=== PATIENT | male | born 1955 | race Caucasian/White ===

== ENCOUNTER 2017-10-02 16:42 | Emergency (ER) | payer OTHER ==
[2017-10-02 16:54] VITALS: PULSE 83
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
[2017-10-02] MEDS ORDERED: LORazepam 2 MG/ML INJ IV STA (17:46)
[2017-10-02 18:12] LABS: Basophils % (A) 1 %; Eosinophils # (A) 0.2 k/uL (0-0.7); Eosinophils % (A) 4 %; HCT 39.8 % (39.0-53.0); HGB 12.8 gm/dL (13.0-17.5); Lymphocytes # (A) 1.9 k/uL (1.0-4.8); Lymphocytes % (A) 31 %; MCH 31.7 pg (25.0-35.0); MCHC 32.2 g/dL (31.0-37.0); MCV 98.6 fL (80.0-100.0); Mean Platelet Volume 7.9; Monocytes # (A) 0.7 k/uL (0-1.0); Monocytes % (A) 11 %; Neutrophils # (A) 3.2 k/uL (1.3-7.7); Neutrophils % (A) 52 %; Platelet Count 241 k/uL (150-450); RBC 4.04 m/uL (4.30-5.90); RDW 13.2 % (11.5-15.5); WBC 6.2 k/uL (3.8-10.6)
[2017-10-02] MEDS ORDERED: HALOPERIDOL LACTATE 5 MG/ML 1 ML VIAL IVP STA (18:16)
[2017-10-02] MEDS ORDERED: diphenhydrAMINE 50 MG/ML 1 ML VIAL IVP STA (18:16)
[2017-10-02 18:22] LABS: ALT 19 U/L (21-72); AST 29 U/L (17-59); Albumin 3.7 g/dL (3.5-5.0); Alkaline Phosphatase 72 U/L (38-126); Anion Gap 12 mmol/L; Blood Urea Nitrogen 28 mg/dL (9-20); Calcium 9.5 mg/dL (8.4-10.2); Carbon Dioxide 26 mmol/L (22-30); Chloride 107 mmol/L (98-107); Glucose 85 mg/dL (74-99); Sodium 145 mmol/L (137-145); Total Bilirubin 0.3 mg/dL (0.2-1.3); Total Protein 7.1 g/dL (6.3-8.2)
[2017-10-02 18:33] LABS: Appearance,Urine Clear (Clear); Bilirubin,Urine Negative (Negative); Blood,Urine Negative (Negative); Color,Urine Yellow; Glucose,Urine (UA) Negative (Negative); Ketones,Urine Negative (Negative); Leukocyte Esterase,Urine Negative (Negative); Nitrite,Urine Negative (Negative); Protein,Urine Trace (Negative); Specific Gravity,Urine 1.025 (1.001-1.035); Urobilinogen,Urine <2.0 mg/dL (<2.0)
[2017-10-02 18:35] LABS: Potassium 4.9 mmol/L (3.5-5.1)
[2017-10-02 18:46] LABS: Amphetamine Screen,Urine Not Detected (NotDetected); Barbiturate Screen,Urine Not Detected (NotDetected); Benzodiazepines Screen,Urine Detected (NotDetected); Cocaine Screen,Urine Not Detected (NotDetected); Methadone Screen, Urine Not Detected (NotDetected); Opiate Screen,Urine Not Detected (NotDetected); Oxycodone Screen, Urine Not Detected (NotDetected); Phencyclidine Screen,Urine Not Detected (NotDetected); Tricyclic Antidepressant,Urine Detected (NotDetected); Urn Cannabinoid Scrn Not Detected (NotDetected)
--- NOTE | 2017-10-02 19:47 | CT ---
EXAMINATION: CT brain wo con DATE AND TIME: 10/02/2017 7:36 PM ORDERING PROVIDER: Alfred Walters MD CLINICAL INDICATION: Pain altered mental status. Multiple scan attempts due to patient inability to f ollow commands and hold still. TECHNIQUE: Standard departmental protocol. DLP: 2640 mGy-cm. COMPARISON: None. DESCRIPTION: The calvarium is intact. There is no intracranial hemorrhage. There is no mass or mass e ffect. There is no definite new attenuation defect. Remainder of the intra-axial and extra-axial comp artment examination is unremarkable. The paranasal sinuses, middle ear cavities, and mastoid sinus ai r cells are clear. The orbits are intact. IMPRESSION: 1. NO ACUTE PROCESS. 2. However, incidental finding of blocked right external auditory canal, which may be due to cerumen.
[2017-10-02 20:49] VITALS: BP 147/75; RESP 20; TEMP 97.1
== END 2017-10-02 20:48 | disposition home or self-care (01) ==
LOC: EC 16:42
DX: R45.1 Restlessness and agitation (principal); R41.82 Altered mental status, unspecified; R06.03 Acute respiratory distress; H54.8 Legal blindness, as defined in USA; Z79.899 Other long term (current) drug therapy; Z88.0 Allergy status to penicillin; Z88.1 Allergy status to other antibiotic agents; Z88.8 Allergy status to other drugs, medicaments and biological substances
CPT/HCPCS: 36415; 80053; 85025; 81003; 80306; 70450; 99285; 96374; 96375 ×2; J2060; J1200; J1630

== ENCOUNTER 2017-10-03 21:57 | Emergency (ER) | payer OTHER ==
[2017-10-03] MEDS ORDERED: diphenhydrAMINE 50 MG/ML 1 ML VIAL IM STA (22:25)
[2017-10-03] MEDS ORDERED: LORazepam 2 MG/ML INJ IM STA (22:25)
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
[2017-10-03] MEDS ORDERED: ZIPRASIDONE 20 MG VIAL IM STA (23:31)
[2017-10-04 00:28] VITALS: BP 104/75; PULSE 78; RESP 18; TEMP 97.4
[2017-10-04 00:43] LABS: Basophils % (A) 0 %; Eosinophils # (A) 0.2 k/uL (0-0.7); Eosinophils % (A) 3 %; HCT 40.3 % (39.0-53.0); HGB 12.8 gm/dL (13.0-17.5); Lymphocytes # (A) 2.5 k/uL (1.0-4.8); Lymphocytes % (A) 35 %; MCH 31.5 pg (25.0-35.0); MCHC 31.8 g/dL (31.0-37.0); Mean Platelet Volume 7.4; Monocytes # (A) 0.7 k/uL (0-1.0); Monocytes % (A) 9 %; Neutrophils # (A) 3.7 k/uL (1.3-7.7); Neutrophils % (A) 51 %; Platelet Count 224 k/uL (150-450); RBC 4.07 m/uL (4.30-5.90); RDW 13.1 % (11.5-15.5); WBC 7.2 k/uL (3.8-10.6)
[2017-10-04 00:51] LABS: ALT 19 U/L (21-72); AST 19 U/L (17-59); Albumin 3.7 g/dL (3.5-5.0); Alkaline Phosphatase 76 U/L (38-126); Anion Gap 9 mmol/L; Blood Urea Nitrogen 27 mg/dL (9-20); Calcium 9.9 mg/dL (8.4-10.2); Carbon Dioxide 26 mmol/L (22-30); Chloride 109 mmol/L (98-107); Glucose 90 mg/dL (74-99); Potassium 4.2 mmol/L (3.5-5.1); Sodium 144 mmol/L (137-145); Total Bilirubin 0.3 mg/dL (0.2-1.3)
[2017-10-04] MEDS ORDERED: OXcarbazepine 150 MG TAB PO STA (08:43)
[2017-10-04] MEDS ORDERED: VALPROIC ACID ORAL SOLN 250 MG/5 ML CUP PO STA (09:44)
--- NOTE | 2017-10-04 11:12 | CONS ---
CONSULTATION DATE OF SERVICE: October 04, 2017. The patient was seen in the emergency room. IDENTIFYING DATA AND HISTORY OF PRESENT ILLNESS: As the patient is nonverbal, most of the information was gathered from the medical record and the nursing staff and the caregiver at the skilled nursing. The patient is a 61 -year-old male with severe autism who presented from a skilled nursing with increased agitation, biting and hitting himself. The patient behavior has been worsening over the last 2 months since he did fall down and he did have a right-sided subdural hematoma. As the patient is nonverbal, I talked with the caregiver who was reluctant to take the patient back to the skilled nursing. However, I told her that they can not bring the patient and drop him especially I did discuss with them that different treatment plan and approach. CURRENT PSYCHOTROPIC MEDICATION: Remeron 30 mg at bedtime. Risperdal 4 mg twice a day. Depakote 500 mg twice a day and BuSpar 5 mg 3 times a day, Keppra 100 mg twice a day. LAB: Workup done on Depakote level was May 2017. It was 107. DIAGNOSES: 1. Neuro cognitive disorder. 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 3. Autistic spectrum. PLAN OF TREATMENT: 1. I did discuss the change of the medications that including one decrease Cogentin to 0.5 twice a day. 2. We will continue the patient on the same dose of Depakote and risperidone, Remeron. 3. We will check a Depakote level and also ammonia level. 4. I will add ReVia or naltrexone 50 mg it does cut down self-mutilation behavior. 5. Also I will add Trileptal 150 mg 3 times a day to control his explosive anger outbursts and I did discuss with them that if the patient would not improve in 2-3 days they can bring the patient back to the ER. Otherwise, patient needs to follow up with his outpatient provider. 6. Prognosis poor. MMODL / IJN: [id number] /
== END 2017-10-04 10:03 | disposition home or self-care (01) ==
LOC: EC 21:57 → EEVIPCON 21:57 → EC 10-04 10:03
DX: F91.9 Conduct disorder, unspecified (principal); R45.1 Restlessness and agitation; Z87.820 Personal history of traumatic brain injury; Z79.899 Other long term (current) drug therapy; Z88.0 Allergy status to penicillin; Z88.1 Allergy status to other antibiotic agents; Z88.8 Allergy status to other drugs, medicaments and biological substances
CPT/HCPCS: 36415; 80164; 80053; 82140; 85025; 99285; 96372 ×3; J2060; J1200; J3486